=== PATIENT | male | born 2000 | race Caucasian/White ===

== ENCOUNTER 2022-06-28 10:37 | Emergency (ER) | payer OTHER | END 2022-06-28 11:05 | disposition home or self-care (01) | LOC: MADERS 10:37 | DX: T78.40XA Allergy, unspecified, initial encounter (principal) | CPT/HCPCS: 99283 ==

== ENCOUNTER 2022-09-18 10:27 | Emergency (ER) | payer OTHER ==
[2022-09-18] MEDS ORDERED: Sodium Chloride 0.9% 2,000 ML ONE (11:38)
[2022-09-18] MEDS ORDERED: diphenhydrAMINE 12.5 MG/5 ML UDCUP ONE (11:38)
[2022-09-18] MEDS ORDERED: Dexamethasone 4 MG TAB ONE (12:24)
== END 2022-09-18 13:07 | disposition home or self-care (01) ==
LOC: MADERS 10:27
DX: B00.2 Herpesviral gingivostomatitis and pharyngotonsillitis (principal)
CPT/HCPCS: 87081; 87430; 99283; J7050; J8540; Q0163

== ENCOUNTER 2023-06-03 16:28 | Emergency (ER) | payer OTHER, SELFPAY | END 2023-06-03 17:50 | disposition home or self-care (01) | LOC: MADERS 16:28 | DX: U07.1 COVID-19 (principal) | CPT/HCPCS: 87635; 99283 ==

== ENCOUNTER 2025-05-18 19:56 | Emergency (ER) | payer SELFPAY | END 2025-05-18 21:07 | disposition home or self-care (01) | LOC: MADERS 19:56 | DX: S63.501A Unspecified sprain of right wrist, initial encounter (principal); S60.222A Contusion of left hand, initial encounter; W22.8XXA Striking against or struck by other objects, initial encounter | CPT/HCPCS: 99283 ==

== ENCOUNTER 2025-09-05 07:45 | Emergency (ER) | payer OTHER, SELFPAY ==
[2025-09-05] MEDS ORDERED: Orphenadrine Citrate 60 MG/2 ML VIAL ONE (08:29)
[2025-09-05] MEDS ORDERED: HYDROcodone/Acetaminophen 5/325 mg Tablet ONE (10:33)
== END 2025-09-05 10:55 | disposition home or self-care (01) ==
LOC: MADERS 07:45
DX: S93.402A Sprain of unspecified ligament of left ankle, initial encounter (principal); S93.602A Unspecified sprain of left foot, initial encounter; S00.93XA Contusion of unspecified part of head, initial encounter; S70.12XA Contusion of left thigh, initial encounter; S80.12XA Contusion of left lower leg, initial encounter; V89.2XXA Person injured in unspecified motor-vehicle accident, traffic, initial encounter
CPT/HCPCS: 70450; 71250; 72125; 74176; 96372; G0390; J1885; J2360